=== PATIENT | male | born 1950 | race Caucasian/White ===

== ENCOUNTER 2016-10-18 11:09 | Emergency (ER) | payer OTHER ==
[2016-10-18] MEDS ORDERED: CYANOCOBAL1000 MCG/M IM (11:32)
[2016-10-18] MEDS ORDERED: ALLOPURINOL100 MG PO (11:32)
[2016-10-18] MEDS ORDERED: METOPROLOL SUCC50 MG PO (11:32)
[2016-10-18] MEDS ORDERED: IBUPROFEN800 MG PO (11:33)
== END 2016-10-18 12:44 | disposition home or self-care (01) ==
LOC: ED 11:09
DX: Z77.21 Contact with and (suspected) exposure to potentially hazardous body fluids (principal); S61.236A Puncture wound without foreign body of right little finger without damage to nail, initial encounter; I10 Essential (primary) hypertension; E78.00 Pure hypercholesterolemia, unspecified; Z87.442 Personal history of urinary calculi; Z88.8 Allergy status to other drugs, medicaments and biological substances; Z79.899 Other long term (current) drug therapy; X58.XXXA Exposure to other specified factors, initial encounter
CPT/HCPCS: 36415; 86703; 86706; 86803; 87340; 90471; 90715; 99283

== ENCOUNTER 2019-12-11 08:15 | Day surgery (SDC) | payer MEDICARE, OTHER ==
[~2019-12-11] VITALS: Ht 177.8 cm; Wt 113.4 kg
[~2019-12-11 08:15] MED LIST: ACETAMIN-CODE12.5 ML PO; ALLOPURINOL100 MG PO; APPLE CIDER VI500 MG PO; COLESTIPOL HCL1 GM PO; CRANBERRY400 M1 PO; CYANOCOBAL1000 MCG/M IM; FENOFIBRATE54 MG PO; FISH OIL 1,0001 EAC2 PO; FLOMAX0.4 MG PO; IBUPROFEN800 MG PO; LOSARTAN POTAS100 MG PO; MAGNESIUM400 M1 PO; METOPROLOL SUC100 MG PO; POTASSIUM CITR PO
[2019-12-11] MEDS ORDERED: TURMERIC 500 M1 EACH PO (08:38)
--- NOTE | 2019-12-11 14:09 | NUR ---
12/11/19 1409 Sheets,Sonya 1359 PT ARRIVED TO PACU ON 6L VIA MASK, PT SLIGHTLY REACTIVE TO TACTILE STIMULI. VSS. 1405 PT WOKE TO TACTILE STIMULI AND IS ENCOURAGED TO DEEP BREATHE, PT ABLE TO SO. 1408 PT DENIES PAIN AND O2 MASK IS REMOVED.
--- NOTE | 2019-12-11 14:30 | NUR ---
PT ARRIVED TO ROOM 1 AND DENIES PAIN AND NAUSEA. VSS. PEREZ IN PLACE AND PINK/RED URINE NOTED IN PEREZ BAG. PT RESTING IN BED AND CALL LIGHT WITHIN REACH.
--- NOTE | 2019-12-11 14:40 | NUR ---
RN TALKING TO PT ON PHONE AND UPDATED ON PT STATUS.
--- NOTE | 2019-12-11 14:50 | NUR ---
PEREZ REMOVED AND RED BLOOD DRAINAGE NOTED AT TIP OF PEREZ, TIP INTACT AND 30 ML PINK URINE IN BAG. PT REPORTS A DECREASE IN THE NEED TO VOID.
[2019-12-11] MEDS ORDERED: PERCOCET 5-3251 EACH PO (16:12)
[2019-12-11] MEDS ORDERED: KEFLEX500 MG PO (16:12)
[2019-12-11] MEDS ORDERED: OXYBUTYNIN CHLOR5 MG PO (16:13)
--- NOTE | 2019-12-11 16:32 | NUR ---
1550: PATIENT UP TO BATHROOM WITH RN ASSISTANCE. GAIT STEADY. VOID WITHOUT DIFFICULTY. URINE BLOODY. GAIT STEADY BACK TO ROOM. WATER REFILLED. PATIENT SITTING ON SIDE OF BED. 1620: DISCHARGE INSTRUCTIONS GIVEN TO PATIENT. 1625: PATIENT DISCHARGED TO HOME VIA WHEELCHAIR WITH .
--- NOTE | 2019-12-14 09:23 | OR ---
[facility] [address] [facility] [place], [place] [address] Signed DATE OF OPERATION: 12/11/2019 SURGEON: Marty Lindsay MD PREOPERATIVE DIAGNOSES: 1. Severe bilateral hydroureteronephrosis. 2. Bilateral obstructing ureteral calculi. 3. Stage 3 chronic kidney disease. POSTOPERATIVE DIAGNOSES: 1. Severe bilateral hydroureteronephrosis. 2. Bilateral obstructing ureteral calculi. 3. Stage 3 chronic kidney disease. NAMES OF PROCEDURES: 1. Diagnostic cystoscopy with bilateral retrograde pyelogram. 2. Bilateral semi-rigid ureteroscopy with laser lithotripsy and basket extraction of stone fragments. 3. Insertion of bilateral double-J indwelling ureteral stents. ANESTHESIA: General. ESTIMATED BLOOD LOSS: 50 mL. COMPLICATIONS: None. SPECIMENS: Fragments of bilateral ureteral calculi sent to the lab for stone analysis. DRAINS: Bilateral 6 x 26 cm double-J ureteral stents inserted into the bilateral ureters. INDICATIONS FOR PROCEDURE: Mr. Alanis is a 69-year-old gentleman with a long-standing history of nephrolithiasis. He was recently seen by Dr. Mccoy for evaluation of chronic kidney failure. Dr. Mccoy performed an ultrasound which revealed severe bilateral hydroureteronephrosis. A subsequent CAT scan revealed significant amount of stone burden present in the bilateral Electronically Signed By: MARTY LINDSAY MD 12/14/19 0923 PATIENT NAME: VLADIMIR ALANIS OPERATIVE REPORT DATE OF : 54 REPORT #: [id number] PHYSICIAN: MARTY LINDSAY MD PCP: LORENZO REYNA REPORT IS CONFIDENTIAL AND NOT TO BE RELEASED WITHOUT AUTHORIZATION [facility] [address] [place], [place] [address] Signed mid ureters, namely 14 mm stone in the mid right ureter and two stones in the left ureter. There were two stones in the left ureter, one measuring 7 mm and the other 8 mm. The hydronephrosis is by far worse on the right side. The patient is completely asymptomatic and had no idea that he had obstructing stones, however he has a long-standing history of kidney stones and is on a low-oxalate diet. The patient's creatinine has remained stable at around 1.6/1.7. The patient presents today to undergo definitive stone extraction in the form of bilateral ureteroscopy, laser lithotripsy, basket extraction of stones and bilateral ureteral stent placement. OPERATIVE FINDINGS: On cystoscopy, there was no evidence of any suspicious masses, lesions, or stones. Bilateral ureteral orifices are in their normal anatomic location. I 1st turned my attention to the right ureteral orifice. I attempted to pass 0.035 Sensor wire up the ureter and into the kidney. I met with a significant amount of resistance secondary to the obstructing mid to distal right ureteral calculi. I chose to go ahead and passed a semi-rigid ureteroscope through the patient's urethra and into his bladder. The ureteroscope then went up into the right ureter. Prior to this, I performed a right retrograde pyelogram using a whistle-tip catheter. Please see above findings. The semi-rigid ureteroscope was passed into the ureter and about 4 cm into the ureter I noticed a very large yellowing stone that appeared to be embedded in the ureter. In fact, there were areas of urothelium appeared to be growing on top of the surface of the stone. The stone was fragmented using a 270 micron fiber and the holmium laser with moderate to severe difficulty. In fact, the stone is very difficult to break on this side. I was finally able to break the stone into smaller fragments and then extract the stone fragments using a Zero-tip basket. This was a complicated part of the surgery and took at least an hour just on one ureter. Once I was satisfied that all stone burden had been removed from the right ureter, I repeated a right retrograde pyelogram which confirmed no remaining stones in the right ureter. I passed a Sensor wire through the ureteroscope and into the right renal pelvis. Over the wire, I passed a 6 x 26 cm double-J ureteral stent into the right collecting system. The stent passed easily and without difficulty. An adequate proximal coil was seen with the right renal pelvis after the Sensor wire was pulled. I was able to appreciate an adequate distal coil in the bladder. I then turned my attention to the left ureter. This time, I passed the whistle-tip catheter right off the bat and performed a left retrograde pyelogram, which did reveal filling defects consistent with two separate stones in the mid left ureter. I advanced a semi-rigid ureteroscope into the left ureter and was able to visualize the stones. These stones were smaller and did not appear to be impacted into the left ureter. There was also not a significant amount of ureteronephrosis noted on the left side as there is on the right side. However, there is some kinking of the left ureter that is consistent with long-standing obstruction. The two stones were fragmented easily using the holmium laser and a 270 micron fiber. The stone fragments were then collected using a Zero tip basket. 100% of stone burden with successfully extracted Electronically Signed By: MARTY LINDSAY MD 12/14/19 0923 PATIENT NAME: VLADIMIR ALANIS OPERATIVE REPORT DATE OF : 54 REPORT #: [id number] PHYSICIAN: MARTY LINDSAY MD PCP: LORENZO REYNA REPORT IS CONFIDENTIAL AND NOT TO BE RELEASED WITHOUT AUTHORIZATION [facility] [address] [place], [place] [address] Signed from both ureters. A 6 x 26 cm stent was then inserted into the left ureter in the same fashion as the right ureter. Once both stents were in good position, I irrigated the kidney stones from the patient's bladder. A 22-[place] two-way Garcia catheter was inserted into the patient's bladder, connected to gravity drainage. This catheter will be removed once the patient is in the PACU. Bilateral retrograde pyelograms were performed. The right retrograde pyelogram revealed severe hydroureteronephrosis to the level of the previously obstructing stone. After the stones were extracted, I did not appreciate any other residual stone fragments within the mid right ureter. Left retrograde pyelogram also revealed a dilating system, but not as severe as on the right. Two stones were clearly seen in the mid left ureter prior to stone extraction. After stone extraction, none of the stones remained. DISPOSITION: I discussed the details of today's procedure with the patient, answered all of his questions. I told him that I was successful in extracting all of his stone burden today which in total is approximately 30 mm. He has ureteral stents in place on both sides, so he will experience a lot of urinary frequency and urgency and gross hematuria for the next 2 to 3 weeks or so. He is scheduled to return to clinic on December 30, to undergo bilateral ureteral stent extraction. His renal function will be rechecked at that time. He will be sent home with Percocet 5/325 dispense #30 as needed for pain along with cephalexin 500 mg p.o. t.i.d. for a total of 7 days. He was also given oxybutynin IR 5 mg p.o. b.i.d. p.r.n. urinary frequency and/or bladder spasms. Marty Lindsay MD AR/MODL /[id number] Copies: ~ Electronically Signed By: MARTY LINDSAY MD 12/14/19 0923 PATIENT NAME: VLADIMIR ALANIS OPERATIVE REPORT DATE OF : 54 REPORT #: [id number] PHYSICIAN: MARTY LINDSAY MD PCP: LORENZO REYNA REPORT IS CONFIDENTIAL AND NOT TO BE RELEASED WITHOUT AUTHORIZATION
== END 2019-12-11 16:25 | disposition home or self-care (01) ==
LOC: DS 08:15 → OPS 08:15
PROVIDERS: Urology
PROC: 0TC68ZZ Extirpation of Matter from Right Ureter, Via Natural or Artificial Opening Endoscopic (ICD-10-PCS; 2019-12-11)
PROC: 0T788DZ Dilation of Bilateral Ureters with Intraluminal Device, Via Natural or Artificial Opening Endoscopic (ICD-10-PCS; 2019-12-11)
PROC: BT14ZZZ Fluoroscopy of Kidneys, Ureters and Bladder (ICD-10-PCS; 2019-12-11)
PROC: 0TC78ZZ Extirpation of Matter from Left Ureter, Via Natural or Artificial Opening Endoscopic (ICD-10-PCS; principal; 2019-12-11 08:45)
DX: N13.2 Hydronephrosis with renal and ureteral calculous obstruction (principal); I12.9 Hypertensive chronic kidney disease with stage 1 through stage 4 chronic kidney disease, or unspecified chronic kidney disease; N18.3 Chronic kidney disease, stage 3 (moderate); Z79.899 Other long term (current) drug therapy
CPT/HCPCS: 00918; 74420; 82365; C1769; C2617; J0696; J1100; J2001; J2405; J2704; J3010; J7121; Q9967